=== PATIENT | female | born 1980 | race Caucasian/White ===

== ENCOUNTER 2016-09-17 12:07 | Emergency (ER) | payer OTHER ==
[~2016-09-17] VITALS: Ht 165.1 cm; Wt 61.4 kg
[2016-09-17] MEDS ORDERED: NAPROSYN500 MG PO (13:01)
[2016-09-17] MEDS ORDERED: FLEXERIL10 MG PO (13:01)
[2016-09-17 13:13] VITALS: BP 124/74
== END 2016-09-17 13:14 | disposition home or self-care (01) ==
LOC: EXP 12:07 → EME 12:07 → EXP 13:14
DX: R51 Headache (principal); M54.5 Low back pain; M62.838 Other muscle spasm; R11.0 Nausea
CPT/HCPCS: 99281; 99284